=== PATIENT | male | born 1985 | race Caucasian/White ===

== ENCOUNTER 2016-11-05 14:01 | Emergency (ER) | payer MEDICAID ==
[2016-11-05 14:38] VITALS: RESP 16
[2016-11-05] MEDS ORDERED: ONDANSETRON DISINTEGRATING 4 MG TAB PO ONE (14:38)
[2016-11-05] MEDS ORDERED: NS 2,000 ML IV ONE (15:29)
[2016-11-05 15:36] LABS: % IMMATURE GRANULYOCYTES 0.4 % (0.0-1.1); ABSOLUTE IMMATURE GRANULOCYTES 0.03 10^3/uL (0.00-0.10); ADD DIFF? NO; ADD MORPH? NO; ADD SCAN? NO; ATYPICAL LYMPHOCYTE FLAG 10 (0-99); FRAGMENT RBC FLAG 0 (0-99); HEMATOCRIT 38.5 % (40.0-51.0); HEMOGLOBIN 13.3 g/dL (13.7-17.5); LEFT SHIFT FLG 10 (0-99); LIPEMIA HEMOLYSIS FLAG 90 (0-99); MEAN CELL HEMOGLOBIN 29.5 pg (27.9-34.1); MEAN CELL HEMOGLOBIN CONCENTR. 34.5 g/dL (32.4-36.7); MEAN CELL VOLUME 85.4 fL (81.5-99.8); MEAN PLATELET VOLUME 9.6 fL (8.7-11.7); PLATELET CLUMPS FLAG 0 (0-99); PLATELET COUNT 195 10^3/uL (150-400); RED BLOOD CELL COUNT 4.51 10^6/uL (4.40-6.38); RED CELL DISTRIBUTION WIDTH 12.2 % (11.5-15.2)
--- NOTE | 2016-11-05 15:36 | EDPHY ---
H & P Stated Complaint: fever, fatigue, nausea Time Seen by Provider: 11/05/16 14:52 HPI/ROS: CHIEF COMPLAINT: lightheadedness, fevers, chills, nausea HISTORY OF PRESENT ILLNESS: 31-year-old male presents emergency department complaining of lightheadedness, fevers and chills, nausea. Patient reports he drank coffee yesterday afternoon and then drank 2 beers, did not drink any water when he went to bed which he normally does. He woke up this morning and went for a more strenuous than usual 2 mile run with his girlfriend, got home and did a 30 minutes workout of sit-ups, pushups and squats. Toward the end of this workout he started feeling lightheaded, nausea and chilled, he states he got into bed under the covers and began shaking, his significant other took his temperature with a temporal thermometer and it was 102.4. Patient states his hands and feet were pale and cold. He reports he only ate a banana prior to his run and did not drink any water. Patient reports nausea. He forced down a smoothie and some water prior to coming to the emergency department, he reports this did not alleviate his symptoms. No recent sick contacts, no abdominal pain , no vomiting or diarrhea. No chest pain or shortness of breath. REVIEW OF SYSTEMS: A comprehensive 10 point review of systems is otherwise negative aside from elements mentioned in the history of present illness. Source: Patient Exam Limitations: No limitations - Personal History Current Tetanus/Diphtheria Vaccine: Unsure Current Tetanus Diphtheria and Acellular Pertussis (TDAP): Unsure - Medical/Surgical History Hx Asthma: No Hx Chronic Respiratory Disease: No Hx Diabetes: No Hx Cardiac Disease: No Hx Renal Disease: No Hx Cirrhosis: No Hx Alcoholism: No Hx HIV/AIDS: No Hx Splenectomy or Spleen Trauma: No Other PMH: healthy - Social History Smoking Status: Never smoked - Physical Exam Exam: Physical Exam Gen: Alert and Oriented, NAD HEENT: PERRL, dry mucous membranes NECK: no meningismus CV: regular rate and regular rhythm PULM: CTAB, no wheezes ABDOMEN: soft, non tender to palpation, BS present BACK: No CVA tenderness NEURO: Neurologically grossly intact EXTREMITIES: normal appearing SKIN: no rash or break in skin on exposed skin PSYCH: answers questions appropriately. Constitutional: Initial Vital Signs Temperature (C) 37.4 C 11/05/16 14:35 Heart Rate 78 11/05/16 14:35 Respiratory Rate 16 11/05/16 14:35 Blood Pressure 122/71 H 11/05/16 14:35 O2 Sat (%) 98 11/05/16 14:35 O2 Delivery Mode Room Air Allergies/Adverse Reactions: No Known Allergies Allergy (Unverified 11/05/16 14:34) Home Medications: Medication Instructions Recorded NK [No Known Home Meds] 11/05/16 Medical Decision Making ED Course/Re-evaluation: IV established, chemistry panel, CBC, lipase, CK ordered, 1 L normal saline is hanging. Patient received 4 mg of Zofran ODT in triage which helped his nausea. 4pm-2nd L of normal saline is hanging, patient reports he is feeling better and is requesting something to eat. Labs are unremarkable. 445pm-patient reports feeling better after eating. my supervising physician spoke with patient, patient will be discharged home, he is given strict return precautions for any new symptoms, worsening symptoms or concerns. He is given a primary care doctor to establish care with. Repeat abdominal exam is benign, patient is afebrile with normal vital signs. Differential Diagnosis: Diagnosis considered but not limited to dehydration, electrolyte abnormality, viral syndrome, gastroenteritis - Data Points Laboratory Results: Laboratory Results 11/05/16 15:18 11/05/16 15:18 11/05/16 11/05/16 11/05/16 15:19 15:18 15:18 WBC 8.55 10^3/uL 10^3/uL (3.80-9.50) RBC 4.51 10^6/uL 10^6/uL (4.40-6.38) Hgb 13.3 g/dL L g/dL (13.7-17.5) POC Hgb 13.9 gm/dL L gm/dL (14.5-17.3) Hct 38.5 % L % (40.0-51.0) POC Hct 41 % L % (42.8-50.6) MCV 85.4 fL fL (81.5-99.8) MCH 29.5 pg pg (27.9-34.1) MCHC 34.5 g/dL g/dL (32.4-36.7) RDW 12.2 % % (11.5-15.2) Plt Count 195 10^3/uL 10^3/uL (150-400) MPV 9.6 fL fL (8.7-11.7) Neut % (Auto) 89.7 % H % (39.3-74.2) Lymph % (Auto) 2.7 % L % (15.0-45.0) [place] % (Auto) 6.5 % % (4.5-13.0) Eos % (Auto) 0.2 % L % (0.6-7.6) Baso % (Auto) 0.5 % % (0.3-1.7) Nucleat RBC Rel Count 0.0 % % (0.0-0.2) Absolute Neuts (auto) 7.67 10^3/uL H 10^3/uL (1.70-6.50) Absolute Lymphs (auto) 0.23 10^3/uL L 10^3/uL (1.00-3.00) Absolute Monos (auto) 0.56 10^3/uL 10^3/uL (0.30-0.80) Absolute Eos (auto) 0.02 10^3/uL L 10^3/uL (0.03-0.40) Absolute Basos (auto) 0.04 10^3/uL 10^3/uL (0.02-0.10) Absolute Nucleated RBC 0.00 10^3/uL 10^3/uL (0-0.01) Immature Gran % 0.4 % % (0.0-1.1) Immature Gran # 0.03 10^3/uL 10^3/uL (0.00-0.10) POC Sodium 138 mEq/L mEq/L (134-144) Sodium 133 mEq/L L mEq/L (134-144) POC Potassium 3.5 mEq/L mEq/L (3.3-5.0) Potassium 3.9 mEq/L mEq/L (3.5-5.2) POC Chloride 100 mEq/L mEq/L (96-108) Chloride 101 mEq/L mEq/L (97-110) Carbon Dioxide 24 mEq/l mEq/l (22-31) Anion Gap 8 mEq/L mEq/L (8-16) POC BUN 15 mg/dL mg/dL (7-23) BUN 16 mg/dL mg/dL (7-23) Creatinine 0.8 mg/dL mg/dL (0.7-1.3) POC Creatinine 0.8 mg/dL mg/dL (0.8-1.5) Estimated GFR > 60 Glucose 86 mg/dL mg/dL (70-100) POC Glucose 95 mg/dL mg/dL (70-100) Calcium 9.3 mg/dL mg/dL (8.5-10.4) Total Bilirubin 1.5 mg/dL H mg/dL (0.1-1.4) AST 37 IU/L IU/L (17-59) ALT 40 IU/L IU/L (21-72) Alkaline Phosphatase 59 IU/L IU/L (38-126) Creatine Kinase 131 IU/L IU/L (0-224) Total Protein 7.2 g/dL g/dL (6.3-8.2) Albumin 4.6 g/dL g/dL (3.5-5.0) Medications Given: Discontinued Medications Acetaminophen (Tylenol 160mg/5ml Oral Liquid) 325 mg PO EDNOW ONE Stop: 11/05/16 15:51 Last Admin: 11/05/16 16:00 Dose: 325 mg Sodium Chloride (Ns) 2,000 mls @ 0 mls/hr IV ONCE ONE PRN Reason: Wide Open Stop: 11/05/16 15:30 Last Admin: 11/05/16 15:39 Dose: 2,000 mls Ondansetron HCl (Zofran Odt) 4 mg PO EDNOW ONE Stop: 11/05/16 14:39 Last Admin: 11/05/16 15:39 Dose: 4 mg Point of Care Test Results: 11/05/16 15:19 POC Sodium 138 POC Potassium 3.5 POC Chloride 100 POC BUN 15 POC Creatinine 0.8 POC Glucose 95 Departure - Departure Disposition: Home, Routine, Self-Care Clinical Impression: Dehydration, Lightheaded Condition: Good Instructions: Dehydration (ED), Lightheadedness (ED), Viral Syndrome (ED) Additional Instructions: Rest, stay hydrated, drink plenty of fluids, slowly advance your diet with bland foods as tolerated. Return to the emergency department for any worsening symptoms, new symptoms or concerns. Follow up with the primary care doctor listed to establish care. Referrals: Fidelia Hicks MD [Medical Doctor] - As per Instructions (Primary care doctor on-call )
[2016-11-05] MEDS ORDERED: ACETAMINOPHEN 325 MG TAB ONE (15:37)
[2016-11-05] MEDS ORDERED: ACETAMINOPHEN 160 MG/5 ML UDCUP PO ONE (15:50)
[2016-11-05 16:13] LABS: ALANINE AMINOTRANSFERASE 40 IU/L (21-72); ALBUMIN 4.6 g/dL (3.5-5.0); ALKALINE PHOSPHATASE 59 IU/L (38-126); ANION GAP 8 mEq/L (8-16); ASPARTATE AMINOTRANSFERASE 37 IU/L (17-59); BILIRUBIN,TOTAL 1.5 mg/dL (0.1-1.4); CALCIUM 9.3 mg/dL (8.5-10.4); CARBON DIOXIDE 24 mEq/l (22-31); CHLORIDE 101 mEq/L (97-110); CREATININE 0.8 mg/dL (0.7-1.3); GLOMERULAR FILTRATION RATE > 60; GLUCOSE 86 mg/dL (70-100); POTASSIUM 3.9 mEq/L (3.5-5.2); SODIUM 133 mEq/L (134-144); TOTAL PROTEIN 7.2 g/dL (6.3-8.2)
[2016-11-05] MEDS ORDERED: IBUPROFEN 600 MG TAB PO ONE (17:15)
[2016-11-05 17:19] VITALS: BP 95/57; PULSE 77; TEMP 100; O2SAT 93
[2016-11-05 17:37] LABS: COLOR PALE YELLOW; LEUKOCYTE ESTERASE,URINE NEGATIVE (NEGATIVE); NITRITE,URINE NEGATIVE (NEGATIVE)
== END 2016-11-05 17:28 | disposition home or self-care (01) ==
DX: R53.83 Other fatigue (principal); E86.0 Dehydration
CPT/HCPCS: 82947-QW